=== PATIENT | male | born 1990 | race Native Hawaiian/Other Pacific Islander ===

== ENCOUNTER 2017-08-17 21:53 | Inpatient (IN) | payer OTHER ==
[~2017-08-17] VITALS: Ht 175.3 cm; Wt 72.7 kg
[2017-08-17 21:40] VITALS: BP 150/100; TEMP 98.1
[2017-08-17 22:57] LABS: PLATELET COUNT 359 K/uL (142-355)
[2017-08-17 23:21] VITALS: BP 143/109
[2017-08-18] VITALS (18 sets, daily range): BP systolic 105–168; BP diastolic 63–110; TEMP 98–98.9; Ht 175.3 cm; Wt 72.7 kg
[2017-08-18 06:20] LABS: PLATELET COUNT 343 K/uL (142-355)
[2017-08-18 06:50] LABS: POTASSIUM 3.5 mmol/L (3.6-5.2)
[2017-08-19] VITALS: BP 149/94; TEMP 99
[2017-08-19 04:00] VITALS: BP 121/89; TEMP 98.2
== END 2017-08-19 08:10 | disposition other institution (70) | DRG 918 ==
LOC: ED 21:53 → ICU 08-18 00:11
PROVIDERS: ADMIT Family Medicine
DX: T42.6X2A Poisoning by other antiepileptic and sedative-hypnotic drugs, intentional self-harm, initial encounter (principal); T42.8X2A Poisoning by antiparkinsonism drugs and other central muscle-tone depressants, intentional self-harm, initial encounter; Y92.89 Other specified places as the place of occurrence of the external cause
CPT/HCPCS: 80048; 80053; 80307; 80320; 80329; 85027; 93005; 99285; J1650

== ENCOUNTER 2017-08-24 19:56 | Outpatient (CLI) | payer OTHER | END 2017-08-24 20:11 | disposition short-term general hospital (02) | LOC: AMB 19:56 | DX: S05.11XA Contusion of eyeball and orbital tissues, right eye, initial encounter (principal); Y04.0XXA Assault by unarmed brawl or fight, initial encounter; Y93.89 Activity, other specified; Y92.89 Other specified places as the place of occurrence of the external cause; Y99.8 Other external cause status | CPT/HCPCS: A0425; A0429 ==

== ENCOUNTER 2017-08-24 20:20 | Emergency (ER) | payer OTHER ==
[~2017-08-24] VITALS: Ht 175.3 cm; Wt 72.6 kg
[2017-08-24 21:41] VITALS: BP 148/91; TEMP 98.1
== END 2017-08-24 21:41 | disposition home or self-care (01) ==
LOC: ED 20:20
DX: S02.81XA Fracture of other specified skull and facial bones, right side, initial encounter for closed fracture (principal); Y04.0XXA Assault by unarmed brawl or fight, initial encounter; Y93.89 Activity, other specified; Y92.89 Other specified places as the place of occurrence of the external cause; Y99.8 Other external cause status
CPT/HCPCS: 99283

== ENCOUNTER 2017-08-25 12:50 | Emergency (ER) | payer OTHER ==
[~2017-08-25] VITALS: Ht 175.3 cm; Wt 72.6 kg
[2017-08-25 15:02] VITALS: BP 116/98; TEMP 97.9
== END 2017-08-25 15:05 | disposition home or self-care (01) ==
LOC: ED 12:50
DX: S01.411A Laceration without foreign body of right cheek and temporomandibular area, initial encounter (principal); W31.89XA Contact with other specified machinery, initial encounter; Y93.89 Activity, other specified; Y92.89 Other specified places as the place of occurrence of the external cause; Y99.8 Other external cause status
CPT/HCPCS: 90715; 99283; J1885